=== PATIENT | male | born 1970 | race Caucasian/White ===

== ENCOUNTER 2024-12-09 02:19 | Emergency (ER) | payer SELFPAY ==
[2024-12-09] MEDS: Ondansetron 4 MG/2 ML SDV IVPUSH ONE ×2 (02:31→05:20)
[2024-12-09] MEDS: Sodium Chloride 0.9% 10 ML Syringe FLUSH PRN (02:32)
[2024-12-09] MEDS ORDERED: Naloxone 0.4 MG/ML SDV IVPUSH PRN (02:45)
[2024-12-09] MEDS: HYDROmorphone 2 MG/ML SDV IVPUSH ONE ×2 (02:51→03:53)
[2024-12-09 02:55] LABS: APPEARANCE,URINE CLEAR (CLEAR); GLUCOSE,URINE NORMAL (NORMAL); OCCULT BLOOD,URINE MODERATE (NEGATIVE)
[2024-12-09 02:57] LABS: BLOOD UREA NITROGEN,BUN 22 mg/dL (7-18); CARBON DIOXIDE,CO2 30 mmol/L (21-32); CHLORIDE,CL 103 mmol/L (100-110); CREATININE 1.6 mg/dL (0.70-1.30); EST CRCL DRUG DOSING (CG) 59.65 mL/min; ESTIMATED GFR 51 mL/min (>60); GLUCOSE RANDOM 124 mg/dL (80-116); POTASSIUM,K 3.4 mmol/L (3.5-5.3); SODIUM,NA 139 mmol/L (135-145)
[2024-12-09 03:10] LABS: SQUAMOUS EPITHELIAL CELLS,UR RARE (NS,R,O)
[2024-12-09 03:14] LABS: BASOPHILS ABSOLUTE AUTO 0.1 x10-3/uL (0.0-0.3); BASOPHILS PERCENT AUTO 1.2 % (0.3-3.8); EOSINOPHILS ABSOLUTE AUTO 0.4 x10-3/uL (0.0-0.6); EOSINOPHILS PERCENT AUTO 5.2 % (0.1-6.8); LYMPHOCYTES ABSOLUTE AUTO 2.9 x10-3/uL (0.5-4.5); LYMPHOCYTES PERCENT AUTO 38.9 % (15.8-45.3); MEAN PLATELET VOLUME 7.5 fL (6.7-11.0); MONOCYTES ABSOLUTE AUTO 0.7 x10-3/uL (0.0-1.2); MONOCYTES PERCENT AUTO 9.8 % (5.5-15.2); NEUTROPHILS ABSOLUTE AUTO 3.3 x10-3/uL (1.7-6.9); NEUTROPHILS PERCENT AUTO 44.9 % (40.3-71.8); PLATELET COUNT,PLT 287 x10(3)uL (117-477); RED BLOOD CELL COUNT 5.20 x10(6)uL (3.90-5.90); RED CELL DISTRIBUTION WIDTH 13.3 % (12.4-15.0); WHITE BLOOD CELL COUNT,WBC 7.4 x10-3/uL (3.2-10.1)
== END 2024-12-09 07:45 ==
LOC: FB.ED 02:19
DX: N13.2 Hydronephrosis with renal and ureteral calculous obstruction (principal); K21.9 Gastro-esophageal reflux disease without esophagitis; Z79.899 Other long term (current) drug therapy
CPT/HCPCS: 74176; 80048; 81001; 85025; 96361; 96374; 96375; 96376; 99285; A9270; J1171; J2405; J2765; J7030